=== PATIENT | male | born 1990 | race Two or more races ===

== ENCOUNTER 2023-07-29 14:58 | Emergency (ER) | payer OTHER ==
[~2023-07-29] VITALS: Ht 162.6 cm; Wt 59.0 kg
== END 2023-07-29 17:16 | disposition home or self-care (01) ==
LOC: ER 14:59
DX: R20.2 Paresthesia of skin (principal)

== ENCOUNTER → 2023-08-08 | Emergency (ER) | payer OTHER ==
[~2023-08-08] VITALS: Ht 157.5 cm; Wt 59.0 kg
[~2023-08-08] MED LIST: CLONAZEPAM0.125 MG PO
[2023-08-08 19:24] LABS: COCAINE NEGATIVE (NEGATIVE); METHADONE NEGATIVE (NEGATIVE); OPIATES NEGATIVE (NEGATIVE); THC ( Cannabinoids) POSITIVE (NEGATIVE)
[2023-08-09 11:38] LABS: HEMATOCRIT 43.3 % (39.0-48.0); MEAN CELL VOLUME 91.1 fL (80.0-100.00); MEAN CORPUSCULAR HEMOGLOBIN 31.6 pg (27.00-32.0); MEAN CORPUSCULAR HGB CONC 34.6 g/dl (32.0-36.0); PLATELET COUNT 384 K/uL (150-450); RED BLOOD COUNT 4.75 M/uL (4.00-6.00); RED CELL DISTRIBUTION WIDTH 13.1 % (11.5-14.5)
[2023-08-09 12:07] LABS: ALBUMIN 3.8 gm/dL (3.4-5.0); BILIRUBIN TOTAL 0.31 mg/dL (0.3-1.2); CALCIUM 9.3 mg/dL (8.5-10.1); CREATININE SERUM 0.86 mg/dL (0.70-1.30); GFR 103.05; GLOBULINA 3.4 G/DL (2.4-3.5); POTASSIUM 4.55 mEq/L (3.5-5.1); TOTAL PROTEIN 7.2 gm/dL (6.4-8.2)
[2023-08-09 13:12] LABS: PH,URINE 6.5 (5.0-8.0); URINE APPEARANCE Clear; URINE BILIRRUBIN Negative (NEGATIVE); URINE BLOOD Negative; URINE COLOR Yellow; URINE GLUCOSE Negative (NEGATIVE); URINE LEUKOCYTE Negative; URINE NITRATE Negative; URINE PROTEIN Negative (NEGATIVE); URINE UROBILINOGEN 0.2 E.U./dl
[2023-08-09 13:22] LABS: URINE BACTERIA 0 uL (0.0-1933); URINE WBC 0.1 uL (0.0-23.2)
== END | disposition designated cancer center or children's hospital (05) ==
LOC: ER 15:21
PROVIDERS: Emergency Medicine
DX: F40.10 Social phobia, unspecified (principal); R11.10 Vomiting, unspecified; Z20.822 Contact with and (suspected) exposure to COVID-19; Z88.8 Allergy status to other drugs, medicaments and biological substances